=== PATIENT | male | born 1985 | race Caucasian/White ===

== ENCOUNTER 2017-08-17 18:31 | Emergency (ER) | payer OTHER ==
[~2017-08-17] VITALS: Ht 182.9 cm; Wt 91.0 kg
[2017-08-17 18:35] VITALS: BP 158/62; PULSE 87; RESP 18; TEMP 98.5
[2017-08-17 19:11] VITALS: BP 129/60; PULSE 87; RESP 17; O2SAT 100
--- NOTE | 2017-08-17 19:20 | PD ---
HPI Chief Complaint: GI Complaint Time Seen by Provider: 19:13 Travel History International Travel<30 days: No Contact w/Intl Traveler<30days: No Traveled to known affect area: No History of Present Illness HPI The patient is a 32 year old male who presents to the [facility] emergency department with a history of nausea and vomiting for the last 12 hours. He has a knotting sensation in the center of his stomach just above the umbilicus that is made better with throwing up. He denies having any diarrhea. He reports that he had a normal formed bowel movement earlier today. He denies having any blood in his stool. He reports that the symptoms began with the vomiting. He reports that he is now throwing up bile. He reports that he try taking Pepto- Bismol without relief. He reports that last night he did have approximately 5 alcoholic beverages and originally thought that it might be related to a hangover, however the symptoms have persisted. On review of systems otherwise, the patient denies having any known recent fevers, cough, congestion, neck pain , chest pain, shortness of breath, urinary symptoms, or neurologic symptoms. He denies having any known sick contacts. FOR[facility]LY [facility] Past Medical History Narrative Medical The patient's past medical history is significant for having colitis in 2011 requiring an overnight admission in the hospital for dehydration. He is unsure of the cause and has not had a recurrence since then. Gastrointestinal Disorders: Yes (COLITIS ) Past Surgical History Narrative Surgical The patient's past surgical history is significant for right inguinal hernia repair. Abdominal Surgery: Yes (HIATAL HERNIA REPAIR ) Social History Alcohol Use: Yes (1-2 times per week) Tobacco Use: Yes (on weekends, 7-8 over weekend) Substance Use: No Allergies-Medications (Allergen,Severity, Reaction): Coded Allergies: No Known Allergies (Unverified , 08/17/17) Reported Meds & Prescriptions Reported Meds & Active Scripts Active No Active Prescriptions or Reported Medications Review of Systems Except as stated in HPI: all other systems reviewed are Neg General / Constitutional: No: Fever Eyes: No: Visual changes HENT: No: Headaches Cardiovascular: No: Chest Pain or Discomfort Respiratory: No: Shortness of Breath Gastrointestinal: Positive: Nausea, Vomiting, Abdominal Pain, Indigestion, No: Diarrhea, Hematemesis, Changes in Bowel Habits, Loss of Appetite Genitourinary: No: Dysuria Musculoskeletal: No: Pain Skin: No Rash Neurologic: No: Weakness Psychiatric: No: Depression Endocrine: No: Polydipsia Hematologic/Lymphatic: No: Easy Bruising Physical Exam Narrative General: The patient is a well-developed well-nourished male in no acute distress Head and Neck exam: Head is normocephalic atraumatic. Eyes: EOMI, pupils are equal round and reactive to light. Nose: Midline septum with pink mucous membranes Mouth: Dentition unremarkable. Moist mucus membranes. Posterior oropharynx is not erythematous. No tonsillar hypertrophy. Uvula midline. Airway patent. Neck: No palpable lymphadenopathy. No nuchal rigidity. No thyromegaly. Cardiovascular: Regular rate and rhythm without murmurs, gallops, or rubs. Lungs: Clear to auscultation bilaterally. No wheezes, rhonchi, or rales. Abdomen: Soft, with reported discomfort on palpation of the area just above the umbilicus , no other tenderness on palpation of the other quadrants of the abdomen. No guarding, rebound, or rigidity. Normal bowel sounds are audible. No tenderness on palpation of McBurney's point. Negative Saldaña sign. Extremities: No clubbing, cyanosis, or edema. 2+ pulses in all 4 extremities. No calf tenderness on palpation. Back: No spinous process tenderness to palpation. No costovertebral angle tenderness to palpation. Neurologic Exam: Grossly nonfocal. Skin Exam: No rash noted. Intact skin that is warm and dry. Data Data Last Documented VS Vital Signs Date Time Temp Pulse Resp B/P (MAP) Pulse Ox O2 Delivery O2 Flow Rate FiO2 08/17/17 19:11 87 17 129/60 (83) 100 Room Air 08/17/17 18:35 98.5 Orders Orders Complete Blood Count With Diff (08/17/17 19:18) Comprehensive Metabolic Panel (08/17/17 19:18) C-Reactive Protein (Crp) (08/17/17 19:18) Lipase (08/17/17 19:18) Urinalysis - C+S If Indicated (08/17/17 19:18) Magnesium (Mg) (08/17/17 19:18) Iv Access Insert/Monitor (08/17/17 19:18) Ecg Monitoring (08/17/17 19:18) Oximetry (08/17/17 19:18) Sodium Chlor 0.9% 1000 Ml Inj (Ns 1000 M (08/17/17 19:30) Ondansetron Inj (Zofran Inj) (08/17/17 19:30) Blood Glucose (08/17/17 20:37) Sodium Chlor 0.9% 1000 Ml Inj (Ns 1000 M (08/17/17 20:45) Prochlorperazine Inj (Compazine Inj) (08/17/17 20:45) Oral Rehydration (08/17/17 20:38) D5w-1/2 Ns (Bolus) Inj (08/17/17 22:00) Labs Laboratory Tests Test 08/17/17 19:45 08/17/17 21:30 White Blood Count 11.7 TH/MM3 Red Blood Count 5.12 MIL/MM3 Hemoglobin 16.1 GM/DL Hematocrit 47.2 % Mean Corpuscular Volume 92.3 FL Mean Corpuscular Hemoglobin 31.5 PG Mean Corpuscular Hemoglobin Concent 34.1 % Red Cell Distribution Width 13.0 % Platelet Count 260 TH/MM3 Mean Platelet Volume 9.7 FL Neutrophils (%) (Auto) 84.3 % Lymphocytes (%) (Auto) 8.7 % Monocytes (%) (Auto) 6.9 % Eosinophils (%) (Auto) 0.0 % Basophils (%) (Auto) 0.1 % Neutrophils # (Auto) 9.9 TH/MM3 Lymphocytes # (Auto) 1.0 TH/MM3 Monocytes # (Auto) 0.8 TH/MM3 Eosinophils # (Auto) 0.0 TH/MM3 Basophils # (Auto) 0.0 TH/MM3 CBC Comment DIFF FINAL Differential Comment Blood Urea Nitrogen 18 MG/DL Creatinine 1.15 MG/DL Random Glucose 57 MG/DL Total Protein 8.2 GM/DL Albumin 4.7 GM/DL Calcium Level 10.0 MG/DL Magnesium Level 2.0 MG/DL Alkaline Phosphatase 72 U/L Aspartate Amino Transf (AST/SGOT) 39 U/L Alanine Aminotransferase (ALT/SGPT) 40 U/L Total Bilirubin 0.8 MG/DL Sodium Level 140 MEQ/L Potassium Level 4.5 MEQ/L Chloride Level 105 MEQ/L Carbon Dioxide Level 17.3 MEQ/L Anion Gap 18 MEQ/L Estimat Glomerular Filtration Rate 75 ML/MIN C-Reactive Protein LESS THAN 0.29 MG/DL Lipase 85 U/L Urine Color YELLOW Urine Turbidity CLEAR Urine pH 5.5 Urine Specific [place] 1.024 Urine Protein 30 mg/dL Urine Glucose (UA) NEG mg/dL Urine Ketones 150 mg/dL Urine Occult Blood NEG Urine Nitrite NEG Urine Bilirubin NEG Urine Urobilinogen LESS THAN 2.0 MG/DL Urine Leukocyte Esterase NEG Urine Mucus FEW /lpf Microscopic Urinalysis Comment CULT NOT INDICATED MDM Medical Decision Making Medical Screen Exam Complete: Yes Emergency Medical Condition: Yes Medical Record Reviewed: Yes Differential Diagnosis Alcohol-related ketoacidosis, versus viral syndrome, versus dehydration, versus electrolyte derangement, versus pancreatitis Narrative Course During the course of the patient's emergency department visit, the patient's history, examination, and differential diagnosis were reviewed with the patient. The patient was placed on a signs sales representative with oximetry and frequent blood pressure monitoring. The patient had IV access obtained and blood work sent for analysis. The patient was initially provided normal saline 1 L IV fluid bolus and Zofran 4 mg IV. The patient's laboratory studies were reviewed and remarkable for a white count of 11.7, hemoglobin 16.1, platelets 260 with 84.3 neutrophils, lymphocytes 8.7, CMP is remarkable for a CO2 of 17.3, anion gap 18, glucose 57 which was repeated at the bedside and noted to be 60. The patient was given orange juice and Gatorade. The patient's repeat blood sugar was then 76. The patient had an AST of 39, C-reactive protein less than 0.29, lipase 85, urinalysis showed 30 protein 150 ketones, otherwise unremarkable. The patient was given a second liter of normal saline IV fluids. The patient was also given D5 half-normal saline 500 mL bolus 1 prior to discharge. The patient was able to tolerate p.o. hydration easily. The patient reported feeling improved. I suspect that the patient's hypoglycemia is related to poor p.o. intake throughout the day today with multiple episodes of vomiting. The patient was instructed to eat small frequent meals over the next 24 hours. He was instructed to stick with bland foods initially and advance his diet as tolerated. The patient is resting comfortably and feels better, is alert and in no distress. The patient's results and examination findings were discussed with the patient. The repeat examination is unremarkable and benign. The history, exam, diagnostic testing, and current condition do not suggest any significant pathology to warrant further testing, continued ED treatment, admission, or surgical evaluation at this point. The vital signs have been stable. The patient does not have uncontrollable pain, intractable vomiting, or other significant symptoms. The patient's condition is stable and appropriate for discharge. The patient will pursue further outpatient evaluation with a primary care physician or other designated or consulting physician as indicated in the discharge instructions. The patient expressed understanding and was agreeable with this plan. Diagnosis Primary Impression: Vomiting Qualified Codes: R11.2 - Nausea with vomiting, unspecified Additional Impression: Hypoglycemia Referrals: Primary Care Physician 3 days Patient Instructions: Acute Nausea and Vomiting (ED), General Instructions, Non -diabetic Hypoglycemia (ED) Med/Other Pt SpecificInfo: Prescription(s) given Scripts No Active Prescriptions or Reported Meds Disposition: 01 DISCHARGE HOME Condition: Stable Emily Michaud MD Aug 17, 2017 19:20
[2017-08-17] MEDS ORDERED: ONDANSETRON HCL 4 MG/2 ML VIAL IV ONE (19:30)
[2017-08-17] MEDS ORDERED: SODIUM CHLOR 0.9% 1000 ML INJ 1,000 ML IV ONE ×2 (19:30→20:45)
[2017-08-17 20:01] LABS: AUTOMATED NEUTROPHIL # 9.9 TH/MM3 (1.8-7.7); BASOPHIL % 0.1 % (0.0-2.0); HEMATOCRIT 47.2 % (39.0-51.0); HEMOGLOBIN 16.1 GM/DL (13.0-17.0); LYMPH % 8.7 % (9.0-44.0); MEAN CELL VOLUME 92.3 FL (80.0-100.0); MEAN CORPUSCULAR HEMOGLOBIN 31.5 PG (27.0-34.0); MEAN CORPUSCULAR HGB CONC 34.1 % (32.0-36.0); MEAN PLATELET VOLUME 9.7 FL (7.0-11.0); MONO % 6.9 % (0.0-8.0); MONOCYTE # 0.8 TH/MM3 (0-0.9); NEUT % 84.3 % (16.0-70.0); PLATELET COUNT 260 TH/MM3 (150-450); RED BLOOD COUNT 5.12 MIL/MM3 (4.50-5.90); WHITE BLOOD COUNT 11.7 TH/MM3 (4.0-11.0)
[2017-08-17 20:19] LABS: ALBUMIN 4.7 GM/DL (3.4-5.0); ALT (GPT) 40 U/L (12-78); AST (GOT) 39 U/L (15-37); BICARBONATE 17.3 MEQ/L (21.0-32.0); BLOOD UREA NITROGEN 18 MG/DL (7-18); C-REACTIVE PROTEIN LESS THAN 0.29 MG/DL (0.00-0.30); CHLORIDE 105 MEQ/L (98-107); CREATININE 1.15 MG/DL (0.60-1.30); GLOMERULAR FILTRATION RATE 75 ML/MIN (>89); GLUCOSE,RANDOM 57 MG/DL (74-106); SODIUM (NA) 140 MEQ/L (136-145)
[2017-08-17 20:21] LABS: ALKALINE PHOSPHATASE 72 U/L (45-117); TOTAL BILIRUBIN ADULT 0.8 MG/DL (0.2-1.0); TOTAL PROTEIN 8.2 GM/DL (6.4-8.2)
[2017-08-17] MEDS ORDERED: PROCHLORPERAZINE INJ 10 MG/2 ML VIAL IV PUSH ONE (20:45)
[2017-08-17 21:42] LABS: BILIRUBIN, URINE NEG (NEG); BLOOD, URINE NEG (NEG); GLUCOSE,URINE NEG (NEG); KETONE, URINE 150 mg/dL (NEG); MUCUS URINE FEW /lpf (OCC); NITRITE,URINE NEG (NEG); PH, URINE 5.5 (5.0-8.5); URINE COLOR YELLOW (YELLW/STRAW); URINE LEUKOCYTE ESTERASE NEG (NEG)
[2017-08-17] MEDS ORDERED: ZOFR4TAB3 SL (21:59)
[2017-08-17] MEDS ORDERED: DEXT 5%-NACL 0.45% 500 ML INJ 500 ML IV ONE (22:00)
== END 2017-08-17 23:34 | disposition home or self-care (01) ==
LOC: NEPC 18:31 → EDBD 18:31 → NEPC 23:34
DX: R11.2 Nausea with vomiting, unspecified (principal); E16.2 Hypoglycemia, unspecified; Z72.0 Tobacco use
CPT/HCPCS: 80053; 81001; 83690; 83735; 85025; 86140; 96374; 96375; 99284; J0780; J2405; J7030